=== PATIENT | male | born 1940 | race Caucasian/White ===

== ENCOUNTER 2019-03-10 05:53 | Day surgery (SDC) | payer MEDICARE, OTHER ==
[~2019-03-10] VITALS: Ht 167.6 cm; Wt 95.0 kg
[~2019-03-10 05:53] MED LIST: ALBUTEROL; ALPHAGAN; ASPI-825 PO; COSOPT; FLUT1DIS3 IH; FLUTICASONE PROP; IBUP-2070 PO; LISINOPRIL/HCTZ; SIMV20TA6 PO; SODIUM CHLORIDE 0.9% 1,000 ML IV ONE; SULFACETAMIDE; TRAVATAN; metropolol
[2019-03-10] MEDS ORDERED: EPINEPHrine 1:1,000 [1 MG/ML] AMP IM ONE (05:54)
[2019-03-10] MEDS ORDERED: LIDOCAINE 2% 30 ML JELLY TP ONE (05:54)
[2019-03-10] MEDS ORDERED: BENZOCAINE 20% 50 MCG/SPRAY 57 GM TP ONE (05:54)
[2019-03-10] MEDS ORDERED: LIDOCAINE 4% 50 ML SOLUTION TP ONE (05:54)
[2019-03-10] MEDS ORDERED: ALBUTEROL SULFATE 2.5 MG/0.5 ML NEB SOLUTION NEB ONE (05:54)
[2019-03-10] MEDS ORDERED: SODIUM CHLORIDE 0.9% 1,000 ML IV ONE (06:30)
[2019-03-10] MEDS ORDERED: SIMV-260 PO (07:06)
[2019-03-10] MEDS ORDERED: HYDR-4455 PO (07:06)
[2019-03-10] MEDS ORDERED: OMEG-112 PO (07:06)
[2019-03-10] MEDS ORDERED: DULO30CA2 PO (07:06)
[2019-03-10] MEDS ORDERED: NITR0.4T52 SL (07:06)
[2019-03-10] MEDS ORDERED: CYCL05OE OU (07:06)
[2019-03-10] MEDS ORDERED: FLUT1BLS IH (07:06)
[2019-03-10] MEDS ORDERED: PANT40TA25 PO (07:06)
[2019-03-10] MEDS ORDERED: TELM1TAB34 PO (07:06)
[2019-03-10] MEDS ORDERED: OLOP2.5D OU (07:06)
[2019-03-10] MEDS ORDERED: ISOS30TA6 PO (07:06)
[2019-03-10] MEDS ORDERED: TAMS-1 PO (07:06)
[2019-03-10] MEDS ORDERED: QUET200T5 PO (07:06)
[2019-03-10] MEDS ORDERED: BRINOS OU (07:06)
[2019-03-10] MEDS ORDERED: TRAVZOS OU (07:06)
[2019-03-10] MEDS ORDERED: MIDAZOLAM HCL 2 MG/2 ML VIAL ONE (08:11)
[2019-03-10] MEDS ORDERED: FentaNYL CITRATE-PF 100 MCG/2 ML VIAL ONE (08:12)
[2019-03-10] MEDS ORDERED: MethylPREDNISolone SOD SUCC 125 MG/2 ML VIAL IVP ONE (08:45)
[2019-03-10] MEDS ORDERED: MethylPREDNISolone SOD SUCC 125 MG/2 ML VIAL ONE (08:47)
[2019-03-10] MEDS ORDERED: OXYGEN THERAPY IH SCH (20:00)
== END 2019-03-10 10:10 | disposition home or self-care (01) ==
LOC: SURGERY 05:53
PROVIDERS: ATTEND Internal Medicine Critical Care Medicine
DX: J38.4 Edema of larynx (principal); B37.0 Candidal stomatitis; J45.909 Unspecified asthma, uncomplicated; E78.00 Pure hypercholesterolemia, unspecified; H40.9 Unspecified glaucoma; I25.10 Atherosclerotic heart disease of native coronary artery without angina pectoris; I10 Essential (primary) hypertension; F17.200 Nicotine dependence, unspecified, uncomplicated; Z79.01 Long term (current) use of anticoagulants; Z79.899 Other long term (current) drug therapy; Z98.42 Cataract extraction status, left eye; Z98.41 Cataract extraction status, right eye; Z98.890 Other specified postprocedural states
CPT/HCPCS: 31623; 31624; 71045; 87015; 87070; 87101; 87205; 87206; 87220; 93005; J0171; J2250; J2930; J3010; J7030

== ENCOUNTER 2021-04-04 06:11 | Day surgery (SDC) | payer MEDICARE, OTHER ==
[2021-04-01 06:21] LABS: COVID AG,FIA SOURCE NASOPHARYNGEAL
[~2021-04-04] VITALS: Ht 167.6 cm; Wt 95.5 kg
[~2021-04-04 06:11] MED LIST changes: -ALBUTEROL; -ALPHAGAN; +BRINOS OU; -COSOPT; +CYCL05OE OU; +DULO30CA96 PO; +FLUT1BLS IH; -FLUTICASONE PROP; +HYDR-4455 PO; -IBUP-2070 PO; +ISOS30TA92 PO; -LISINOPRIL/HCTZ; +NITR0.4T52 SL; +OLOP2.5D12 OU; +OMEG-112 PO; +PANT-31 PO; +QUET200T5 PO; +SIMV-260 PO; -SIMV20TA6 PO; -SODIUM CHLORIDE 0.9% 1,000 ML IV ONE; -SULFACETAMIDE; +TAMS-1 PO; +TELM1TAB42 PO; +TRAV2.5D7 OU; -TRAVATAN; -metropolol
[2021-04-04] MEDS ORDERED: LIDOCAINE 4% 50 ML SOLUTION TP ONE (06:12)
[2021-04-04] MEDS ORDERED: LIDOCAINE 2% 30 ML JELLY TP ONE (06:12)
[2021-04-04] MEDS ORDERED: ALBUTEROL SULFATE 2.5 MG/0.5 ML NEB SOLUTION NEB ONE (06:12)
[2021-04-04] MEDS ORDERED: BENZOCAINE 20% 50 MCG/SPRAY 57 GM TP ONE (06:12)
[2021-04-04] MEDS ORDERED: SODIUM CHLORIDE 0.9% 1,000 ML IV ONE (06:30)
[2021-04-04] MEDS ORDERED: SODIUM CHLORIDE 0.9% 1,000 ML ONE (06:42)
[2021-04-04] MEDS ORDERED: MIDAZOLAM HCL 5 MG/ML VIAL ONE (07:10)
[2021-04-04] MEDS ORDERED: FentaNYL CITRATE PF 100 MCG/2 ML VIAL ONE (07:10)
[2021-04-04] MEDS ORDERED: MethylPREDNISolone SOD SUCC 125 MG/2 ML VIAL IVP ONE (08:45)
[2021-04-04] MEDS ORDERED: MethylPREDNISolone SOD SUCC 125 MG/2 ML VIAL ONE (09:38)
[2021-04-04] MEDS ORDERED: OXYGEN THERAPY IH SCH (20:00)
== END 2021-04-04 10:51 | disposition home or self-care (01) ==
LOC: SURGERY 06:11
PROVIDERS: ATTEND Internal Medicine Critical Care Medicine
DX: B37.0 Candidal stomatitis (principal); J38.4 Edema of larynx; Z98.890 Other specified postprocedural states; Z79.82 Long term (current) use of aspirin; Z98.42 Cataract extraction status, left eye; Z98.41 Cataract extraction status, right eye; Z79.899 Other long term (current) drug therapy
CPT/HCPCS: 31623; 31624; 71045; 71250; 87015; 87070; 87101; 87205; 87206; 87220; 87426; 88108; 88184; 88185; 88312; C9803; J2250; J2930; J3010; J7030; J7613; Z7610

== ENCOUNTER 2021-10-17 15:15 | Inpatient (IN) | payer MEDICARE, OTHER ==
[~2021-10-17] VITALS: Ht 167.6 cm; Wt 87.1 kg
[~2021-10-17 15:15] MED LIST changes: +DULO30CA89 PO; -DULO30CA96 PO
[2021-10-17 15:30] VITALS: BP 150/76
[2021-10-17 20:28] VITALS: BP 127/58
[2021-10-17] MEDS: SENNA 187 MG TABLET PO SCH (20:29)
[2021-10-17] MEDS: SODIUM CHLORIDE 1 GM TABLET PO SCH (20:29)
[2021-10-17] MEDS: ETHYL ALCOHOL 62% ANTISEPTIC NASAL INHALANT 0.6 ML AMPUL NASAL SCH (20:29)
[2021-10-17] MEDS: MELATONIN 3 MG TABLET PO PRN (20:29)
[2021-10-17] MEDS: HEPARIN SODIUM,PORCINE 5,000 UNITS/ML VIAL SQ SCH (20:29)
[2021-10-17] MEDS: TAMSULOSIN HCL 0.4 MG CAPSULE PO SCH (20:30)
[2021-10-17] MEDS: QUEtiapine FUMARATE 25 MG TABLET PO SCH (20:30)
[2021-10-17] MEDS: BRINZOLAMIDE 1% 10 ML OPHTHALMIC SUSPENSION OU SCH (20:30)
[2021-10-17] MEDS: SIMVASTATIN 20 MG TABLET PO SCH (20:30)
[2021-10-17] MEDS: TRAVOPROST-Z 0.004% 2.5 ML OPHTHALMIC SOLUTION OU SCH (20:34)
[2021-10-17] MEDS: CycloSPORINE 0.05% 0.4 ML OPHTHALMIC EMULSION OU SCH (20:40)
[2021-10-17] MEDS ORDERED: VALSARTAN 160 MG TABLET PO SCH (21:00)
[2021-10-17 23:28] VITALS: BP 148/76
[2021-10-18 08:02] LABS: BASOPHILS % (AUTO) 0.4 % (0.0-2.0); EOSINOPHILS % (AUTO) 1.6 % (1.0-6.0); HEMATOCRIT 34.9 % (41-53); HEMOGLOBIN 12.1 g/dL (13.5-17.5); LYMPHOCYTES # (AUTO) 1.5 K/uL (1.0-4.8); LYMPHOCYTES % (AUTO) 16.9 % (22.0-44.0); MEAN CORPUSCULAR HEMOGLOBIN 31.1 pg (26.0-34.0); MEAN CORPUSCULAR HGB CONC 34.6 G/dL (31.0-37.0); MEAN CORPUSCULAR VOLUME 90 fL (80-100); MONOCYTES # (AUTO) 0.9 K/uL (0.1-1.0); MONOCYTES % (AUTO) 10.3 % (2.0-9.0); NEUTROPHILS # (AUTO) 6.1 K/uL (1.8-7.7); NEUTROPHILS % (AUTO) 70.8 % (40.0-70.0); PLATELET COUNT (AUTO) 198 K/uL (150-450); RED BLOOD CELL COUNT(AUTO) 3.88 MIL/uL (4.50-5.90)
[2021-10-18 08:17] LABS: ALANINE AMINOTRANSFERASE 35 U/L (12-78); ALBUMIN 2.9 g/dL (3.4-5.0); ALKALINE PHOSPHATASE 89 U/L (46-116); ANION GAP 7 mmol/L (8-16); ASPARTATE AMINOTRANSFERASE 21 U/L (15-37); CALCIUM, TOTAL 8.9 mg/dL (8.8-10.5); CARBON DIOXIDE 28 mmol/L (22-29); CHLORIDE 97 mmol/L (98-107); CREATININE 0.98 mg/dL (0.60-1.30); GLOMERULAR FILTR. RATE CALC > 60 mL/min (>60); GLUCOSE,RANDOM 115 mg/dL (70-110); POTASSIUM 3.5 mmol/L (3.5-5.1); SODIUM SERUM 132 mmol/L (136-145); TOTAL PROTEIN, SERUM 7.5 g/dL (6.4-8.2); UREA NITROGEN, BLOOD 23 mg/dL (7-18)
[2021-10-18] MEDS ORDERED: TELMISARTAN 40 MG TABLET PO SCH (09:00)
[2021-10-18] MEDS: HEPARIN SODIUM,PORCINE 5,000 UNITS/ML VIAL SQ SCH ×3 (09:43→21:11)
[2021-10-18] MEDS: BRINZOLAMIDE 1% 10 ML OPHTHALMIC SUSPENSION OU SCH ×3 (09:44→21:12)
[2021-10-18] MEDS: TRAVOPROST-Z 0.004% 2.5 ML OPHTHALMIC SOLUTION OU SCH ×2 (09:44→21:13)
[2021-10-18] MEDS: SODIUM CHLORIDE 1 GM TABLET PO SCH ×3 (09:44→21:12)
[2021-10-18] MEDS: ETHYL ALCOHOL 62% ANTISEPTIC NASAL INHALANT 0.6 ML AMPUL NASAL SCH ×2 (09:45→21:10)
[2021-10-18] MEDS: AmLODIPine BESYLATE 10 MG TABLET PO SCH (09:45)
[2021-10-18] MEDS: ISOSORBIDE MONONITRATE 30 MG ER TABLET PO SCH (09:45)
[2021-10-18] MEDS: HYDROCHLOROTHIAZIDE 25 MG TABLET PO SCH (09:46)
[2021-10-18] MEDS: CycloSPORINE 0.05% 0.4 ML OPHTHALMIC EMULSION OU SCH ×2 (09:46→21:11)
[2021-10-18 10:00] VITALS: BP 145/74
[2021-10-18] MEDS: ACETAMINOPHEN 325 MG TABLET PO PRN ×2 (10:28→17:49)
[2021-10-18 16:30] VITALS: BP 132/64
[2021-10-18] MEDS ORDERED: *PATIENT'S OWN MED [ENTER DRUG, DOSE, FREQUENCY IN COMMENTS] CLINICAL ONE (17:15)
[2021-10-18 20:30] VITALS: BP 135/61
[2021-10-18] MEDS: SENNA 187 MG TABLET PO SCH (21:11)
[2021-10-18] MEDS: TAMSULOSIN HCL 0.4 MG CAPSULE PO SCH (21:11)
[2021-10-18] MEDS: SIMVASTATIN 20 MG TABLET PO SCH (21:12)
[2021-10-18] MEDS: QUEtiapine FUMARATE 25 MG TABLET PO SCH (21:12)
[2021-10-18] MEDS: OLOPATADINE HCL 0.1% 5 ML OPHTHALMIC SOLUTION OU SCH (21:13)
[2021-10-18 23:21] VITALS: BP 129/57
[2021-10-19] MEDS: ETHYL ALCOHOL 62% ANTISEPTIC NASAL INHALANT 0.6 ML AMPUL NASAL SCH ×2 (08:28→20:09)
[2021-10-19] MEDS: HEPARIN SODIUM,PORCINE 5,000 UNITS/ML VIAL SQ SCH ×3 (08:28→20:06)
[2021-10-19] MEDS: TRAVOPROST-Z 0.004% 2.5 ML OPHTHALMIC SOLUTION OU SCH ×2 (08:28→20:13)
[2021-10-19] MEDS: AmLODIPine BESYLATE 10 MG TABLET PO SCH (08:28)
[2021-10-19] MEDS: OLOPATADINE HCL 0.1% 5 ML OPHTHALMIC SOLUTION OU SCH ×2 (08:28→20:20)
[2021-10-19] MEDS: BRINZOLAMIDE 1% 10 ML OPHTHALMIC SUSPENSION OU SCH ×3 (08:29→19:53)
[2021-10-19] MEDS: ISOSORBIDE MONONITRATE 30 MG ER TABLET PO SCH (08:30)
[2021-10-19] MEDS: CycloSPORINE 0.05% 0.4 ML OPHTHALMIC EMULSION OU SCH ×2 (08:30→20:07)
[2021-10-19] MEDS: SODIUM CHLORIDE 1 GM TABLET PO SCH ×2 (08:30→20:02)
[2021-10-19] MEDS: HYDROCHLOROTHIAZIDE 25 MG TABLET PO SCH (08:31)
[2021-10-19 08:57] VITALS: BP 126/54
[2021-10-19] MEDS: ACETAMINOPHEN 325 MG TABLET PO PRN ×2 (08:57→13:57)
[2021-10-19 15:23] VITALS: BP 124/59
[2021-10-19 20:01] VITALS: BP 134/69
[2021-10-19] MEDS: SENNA 187 MG TABLET PO SCH (20:02)
[2021-10-19] MEDS: MIRTAZAPINE 15 MG TABLET PO SCH (20:02)
[2021-10-19] MEDS: MELATONIN 3 MG TABLET PO PRN (20:03)
[2021-10-19] MEDS: TAMSULOSIN HCL 0.4 MG CAPSULE PO SCH (20:03)
[2021-10-19] MEDS: VALSARTAN 160 MG TABLET PO SCH (20:06)
[2021-10-19] MEDS: SIMVASTATIN 20 MG TABLET PO SCH (20:07)
[2021-10-19 23:53] VITALS: BP 148/76
[2021-10-20 08:09] VITALS: BP 133/63
[2021-10-20 08:15] LABS: ANION GAP 11 mmol/L (8-16); CALCIUM, TOTAL 9.1 mg/dL (8.8-10.5); CARBON DIOXIDE 26 mmol/L (22-29); CHLORIDE 93 mmol/L (98-107); CREATININE 0.97 mg/dL (0.60-1.30); GLOMERULAR FILTR. RATE CALC > 60 mL/min (>60); GLUCOSE,RANDOM 112 mg/dL (70-110); POTASSIUM 3.3 mmol/L (3.5-5.1); SODIUM SERUM 130 mmol/L (136-145); UREA NITROGEN, BLOOD 23 mg/dL (7-18)
[2021-10-20] MEDS: ETHYL ALCOHOL 62% ANTISEPTIC NASAL INHALANT 0.6 ML AMPUL NASAL SCH ×2 (08:22→20:38)
[2021-10-20] MEDS: MULTIVITAMINS WITH MINERALS, THERAPEUTIC TABLET PO SCH (08:23)
[2021-10-20] MEDS: TRAVOPROST-Z 0.004% 2.5 ML OPHTHALMIC SOLUTION OU SCH ×2 (08:24→20:39)
[2021-10-20] MEDS: OMEPRAZOLE 20 MG CAPSULE PO SCH (08:24)
[2021-10-20] MEDS: ISOSORBIDE MONONITRATE 30 MG ER TABLET PO SCH (08:24)
[2021-10-20] MEDS: OLOPATADINE HCL 0.1% 5 ML OPHTHALMIC SOLUTION OU SCH ×2 (08:24→20:44)
[2021-10-20] MEDS: BRINZOLAMIDE 1% 10 ML OPHTHALMIC SUSPENSION OU SCH ×3 (08:24→20:34)
[2021-10-20] MEDS: AmLODIPine BESYLATE 10 MG TABLET PO SCH (08:24)
[2021-10-20] MEDS: SODIUM CHLORIDE 1 GM TABLET PO SCH ×2 (08:24→20:38)
[2021-10-20] MEDS: HEPARIN SODIUM,PORCINE 5,000 UNITS/ML VIAL SQ SCH ×3 (08:25→20:47)
[2021-10-20] MEDS: CycloSPORINE 0.05% 0.4 ML OPHTHALMIC EMULSION OU SCH ×3 (08:26→20:50)
[2021-10-20] MEDS ORDERED: POTASSIUM CHLORIDE 10 MEQ ER TABLET PO ONE (10:00)
[2021-10-20 12:00] VITALS: BP 131/64
[2021-10-20] MEDS ORDERED: POTASSIUM CHLORIDE 20 MEQ ER TABLET PO PRN (12:45)
[2021-10-20] MEDS ORDERED: POTASSIUM CHL 10 MEQ/WATER 50 ML IV PRN (12:45)
[2021-10-20 16:04] VITALS: BP 112/60
[2021-10-20] MEDS: ACETAMINOPHEN 325 MG TABLET PO PRN (18:24)
[2021-10-20] MEDS: SIMVASTATIN 20 MG TABLET PO SCH (20:37)
[2021-10-20] MEDS: SENNA 187 MG TABLET PO SCH (20:37)
[2021-10-20] MEDS: VALSARTAN 160 MG TABLET PO SCH (20:38)
[2021-10-20] MEDS: MIRTAZAPINE 15 MG TABLET PO SCH (20:38)
[2021-10-20] MEDS: TAMSULOSIN HCL 0.4 MG CAPSULE PO SCH (20:38)
[2021-10-20 21:00] VITALS: BP 146/68
[2021-10-21 08:01] VITALS: BP 147/69
[2021-10-21] MEDS: BRINZOLAMIDE 1% 10 ML OPHTHALMIC SUSPENSION OU SCH ×3 (08:12→20:17)
[2021-10-21] MEDS: ETHYL ALCOHOL 62% ANTISEPTIC NASAL INHALANT 0.6 ML AMPUL NASAL SCH ×2 (08:12→20:06)
[2021-10-21] MEDS: OLOPATADINE HCL 0.1% 5 ML OPHTHALMIC SOLUTION OU SCH ×2 (08:12→20:06)
[2021-10-21] MEDS: TRAVOPROST-Z 0.004% 2.5 ML OPHTHALMIC SOLUTION OU SCH ×2 (08:13→20:43)
[2021-10-21] MEDS: SODIUM CHLORIDE 1 GM TABLET PO SCH ×2 (08:14→20:32)
[2021-10-21] MEDS: OMEPRAZOLE 20 MG CAPSULE PO SCH (08:14)
[2021-10-21] MEDS: ISOSORBIDE MONONITRATE 30 MG ER TABLET PO SCH (08:14)
[2021-10-21] MEDS: CycloSPORINE 0.05% 0.4 ML OPHTHALMIC EMULSION OU SCH ×2 (08:14→20:32)
[2021-10-21] MEDS: AmLODIPine BESYLATE 10 MG TABLET PO SCH (08:15)
[2021-10-21] MEDS: MULTIVITAMINS WITH MINERALS, THERAPEUTIC TABLET PO SCH (08:15)
[2021-10-21] MEDS: HEPARIN SODIUM,PORCINE 5,000 UNITS/ML VIAL SQ SCH ×3 (08:17→20:31)
[2021-10-21] MEDS ORDERED: POTASSIUM CHLORIDE 20 MEQ ER TABLET PO ONE (10:00)
[2021-10-21 10:53] LABS: ANION GAP 12 mmol/L (8-16); CALCIUM, TOTAL 9.1 mg/dL (8.8-10.5); CARBON DIOXIDE 22 mmol/L (22-29); CHLORIDE 97 mmol/L (98-107); GLUCOSE,RANDOM 106 mg/dL (70-110); POTASSIUM 4.2 mmol/L (3.5-5.1); SODIUM SERUM 131 mmol/L (136-145); UREA NITROGEN, BLOOD 23 mg/dL (7-18)
[2021-10-21 10:55] LABS: GLOMERULAR FILTR. RATE CALC > 60 mL/min (>60)
[2021-10-21 16:00] VITALS: BP 128/57
[2021-10-21 20:30] VITALS: BP 145/73
[2021-10-21] MEDS: VALSARTAN 160 MG TABLET PO SCH (20:31)
[2021-10-21] MEDS: TAMSULOSIN HCL 0.4 MG CAPSULE PO SCH (20:31)
[2021-10-21] MEDS: SENNA 187 MG TABLET PO SCH (20:31)
[2021-10-21] MEDS: MIRTAZAPINE 15 MG TABLET PO SCH (20:31)
[2021-10-21] MEDS: SIMVASTATIN 20 MG TABLET PO SCH (20:31)
[2021-10-22] VITALS: BP 162/76
[2021-10-22 09:00] VITALS: BP 148/73
[2021-10-22] MEDS: ETHYL ALCOHOL 62% ANTISEPTIC NASAL INHALANT 0.6 ML AMPUL NASAL SCH ×2 (09:38→21:21)
[2021-10-22] MEDS: BRINZOLAMIDE 1% 10 ML OPHTHALMIC SUSPENSION OU SCH ×3 (09:39→21:22)
[2021-10-22] MEDS: SODIUM CHLORIDE 1 GM TABLET PO SCH ×2 (09:39→21:22)
[2021-10-22] MEDS: MULTIVITAMINS WITH MINERALS, THERAPEUTIC TABLET PO SCH (09:39)
[2021-10-22] MEDS: TRAVOPROST-Z 0.004% 2.5 ML OPHTHALMIC SOLUTION OU SCH ×2 (09:39→21:22)
[2021-10-22] MEDS: OMEPRAZOLE 20 MG CAPSULE PO SCH (09:39)
[2021-10-22] MEDS: ISOSORBIDE MONONITRATE 30 MG ER TABLET PO SCH (09:39)
[2021-10-22] MEDS: OLOPATADINE HCL 0.1% 5 ML OPHTHALMIC SOLUTION OU SCH ×2 (09:39→21:21)
[2021-10-22] MEDS: HEPARIN SODIUM,PORCINE 5,000 UNITS/ML VIAL SQ SCH ×3 (09:40→21:35)
[2021-10-22] MEDS: CycloSPORINE 0.05% 0.4 ML OPHTHALMIC EMULSION OU SCH ×2 (09:40→21:33)
[2021-10-22] MEDS: AmLODIPine BESYLATE 10 MG TABLET PO SCH (09:40)
[2021-10-22 16:29] VITALS: BP 128/63
[2021-10-22] MEDS: MIRTAZAPINE 15 MG TABLET PO SCH (21:22)
[2021-10-22] MEDS: SENNA 187 MG TABLET PO SCH (21:22)
[2021-10-22] MEDS: TAMSULOSIN HCL 0.4 MG CAPSULE PO SCH (21:22)
[2021-10-22] MEDS: VALSARTAN 160 MG TABLET PO SCH (21:22)
[2021-10-22] MEDS: ACETAMINOPHEN 325 MG TABLET PO PRN (21:23)
[2021-10-22] MEDS: SIMVASTATIN 20 MG TABLET PO SCH (21:24)
[2021-10-22 23:46] VITALS: BP 148/78
[2021-10-23] MEDS: TRAVOPROST-Z 0.004% 2.5 ML OPHTHALMIC SOLUTION OU SCH ×2 (08:45→21:33)
[2021-10-23] MEDS: CycloSPORINE 0.05% 0.4 ML OPHTHALMIC EMULSION OU SCH ×2 (08:45→21:33)
[2021-10-23] MEDS: OLOPATADINE HCL 0.1% 5 ML OPHTHALMIC SOLUTION OU SCH ×2 (08:45→21:33)
[2021-10-23] MEDS: BRINZOLAMIDE 1% 10 ML OPHTHALMIC SUSPENSION OU SCH ×3 (08:45→21:33)
[2021-10-23] MEDS: DOCUSATE SODIUM 250 MG CAPSULE PO SCH ×2 (08:46→21:31)
[2021-10-23] MEDS: HEPARIN SODIUM,PORCINE 5,000 UNITS/ML VIAL SQ SCH ×3 (08:46→21:30)
[2021-10-23] MEDS: ETHYL ALCOHOL 62% ANTISEPTIC NASAL INHALANT 0.6 ML AMPUL NASAL SCH ×2 (08:46→21:31)
[2021-10-23] MEDS: SODIUM CHLORIDE 1 GM TABLET PO SCH ×2 (08:46→21:31)
[2021-10-23] MEDS: MULTIVITAMINS WITH MINERALS, THERAPEUTIC TABLET PO SCH (08:46)
[2021-10-23] MEDS: ISOSORBIDE MONONITRATE 30 MG ER TABLET PO SCH (08:46)
[2021-10-23] MEDS: OMEPRAZOLE 20 MG CAPSULE PO SCH (08:46)
[2021-10-23] MEDS: AmLODIPine BESYLATE 10 MG TABLET PO SCH (08:46)
[2021-10-23 09:00] VITALS: BP 131/73
[2021-10-23] MEDS ORDERED: POTASSIUM CHLORIDE 20 MEQ ER TABLET PO SCH (09:00)
[2021-10-23] MEDS ORDERED: LACTULOSE 20 GM/30 ML SOLUTION UDCUP PO PRN (13:00)
[2021-10-23 16:05] VITALS: BP 113/71
[2021-10-23] MEDS: TAMSULOSIN HCL 0.4 MG CAPSULE PO SCH (21:31)
[2021-10-23] MEDS: VALSARTAN 160 MG TABLET PO SCH (21:31)
[2021-10-23] MEDS: SENNA 187 MG TABLET PO SCH (21:32)
[2021-10-23] MEDS: SIMVASTATIN 20 MG TABLET PO SCH (21:32)
[2021-10-23] MEDS: MIRTAZAPINE 15 MG TABLET PO SCH (21:32)
[2021-10-23 23:26] VITALS: BP 128/76
[2021-10-24 08:02] VITALS: BP 148/70
[2021-10-24 08:06] LABS: ANION GAP 9 mmol/L (8-16); CARBON DIOXIDE 25 mmol/L (22-29); CHLORIDE 93 mmol/L (98-107); CREATININE 0.84 mg/dL (0.60-1.30); GLUCOSE,RANDOM 114 mg/dL (70-110); SODIUM SERUM 127 mmol/L (136-145); UREA NITROGEN, BLOOD 23 mg/dL (7-18)
[2021-10-24 08:12] LABS: GLOMERULAR FILTR. RATE CALC > 60 mL/min (>60)
[2021-10-24] MEDS: MULTIVITAMINS WITH MINERALS, THERAPEUTIC TABLET PO SCH (08:15)
[2021-10-24] MEDS: HEPARIN SODIUM,PORCINE 5,000 UNITS/ML VIAL SQ SCH ×3 (08:15→20:29)
[2021-10-24] MEDS: BRINZOLAMIDE 1% 10 ML OPHTHALMIC SUSPENSION OU SCH ×3 (08:15→20:35)
[2021-10-24] MEDS: AmLODIPine BESYLATE 10 MG TABLET PO SCH (08:15)
[2021-10-24] MEDS: DOCUSATE SODIUM 250 MG CAPSULE PO SCH ×2 (08:15→20:30)
[2021-10-24] MEDS: ETHYL ALCOHOL 62% ANTISEPTIC NASAL INHALANT 0.6 ML AMPUL NASAL SCH ×2 (08:15→20:29)
[2021-10-24] MEDS: CycloSPORINE 0.05% 0.4 ML OPHTHALMIC EMULSION OU SCH ×2 (08:16→20:46)
[2021-10-24] MEDS: ISOSORBIDE MONONITRATE 30 MG ER TABLET PO SCH (08:16)
[2021-10-24] MEDS: SODIUM CHLORIDE 1 GM TABLET PO SCH ×2 (08:16→20:29)
[2021-10-24] MEDS: OLOPATADINE HCL 0.1% 5 ML OPHTHALMIC SOLUTION OU SCH ×2 (08:16→20:29)
[2021-10-24] MEDS: TRAVOPROST-Z 0.004% 2.5 ML OPHTHALMIC SOLUTION OU SCH ×2 (08:16→20:56)
[2021-10-24] MEDS: OMEPRAZOLE 20 MG CAPSULE PO SCH (08:16)
[2021-10-24 16:10] VITALS: BP 117/53
[2021-10-24] MEDS: MIRTAZAPINE 15 MG TABLET PO SCH (20:29)
[2021-10-24] MEDS: TAMSULOSIN HCL 0.4 MG CAPSULE PO SCH (20:29)
[2021-10-24] MEDS: SENNA 187 MG TABLET PO SCH (20:29)
[2021-10-24] MEDS: SIMVASTATIN 20 MG TABLET PO SCH (20:30)
[2021-10-24 21:05] VITALS: BP 126/64
[2021-10-24] MEDS: VALSARTAN 160 MG TABLET PO SCH (21:07)
[2021-10-25 00:29] VITALS: BP 138/64
[2021-10-25] MEDS: BRINZOLAMIDE 1% 10 ML OPHTHALMIC SUSPENSION OU SCH ×3 (08:10→20:28)
[2021-10-25] MEDS: ETHYL ALCOHOL 62% ANTISEPTIC NASAL INHALANT 0.6 ML AMPUL NASAL SCH ×2 (08:10→20:23)
[2021-10-25] MEDS: OMEPRAZOLE 20 MG CAPSULE PO SCH (08:10)
[2021-10-25] MEDS: OLOPATADINE HCL 0.1% 5 ML OPHTHALMIC SOLUTION OU SCH ×2 (08:10→20:23)
[2021-10-25] MEDS: DOCUSATE SODIUM 250 MG CAPSULE PO SCH ×3 (08:11→21:00)
[2021-10-25] MEDS: TRAVOPROST-Z 0.004% 2.5 ML OPHTHALMIC SOLUTION OU SCH ×2 (08:11→20:39)
[2021-10-25] MEDS: MULTIVITAMINS WITH MINERALS, THERAPEUTIC TABLET PO SCH (08:11)
[2021-10-25] MEDS: SODIUM CHLORIDE 1 GM TABLET PO SCH ×3 (08:11→20:23)
[2021-10-25] MEDS: AmLODIPine BESYLATE 10 MG TABLET PO SCH (08:11)
[2021-10-25] MEDS: ISOSORBIDE MONONITRATE 30 MG ER TABLET PO SCH (08:11)
[2021-10-25] MEDS: CycloSPORINE 0.05% 0.4 ML OPHTHALMIC EMULSION OU SCH ×2 (08:11→21:00)
[2021-10-25] MEDS: HEPARIN SODIUM,PORCINE 5,000 UNITS/ML VIAL SQ SCH ×3 (08:12→20:22)
[2021-10-25 09:01] VITALS: BP 133/72
[2021-10-25] MEDS: ACETAMINOPHEN 325 MG TABLET PO PRN (11:57)
[2021-10-25 15:20] VITALS: BP 130/63
[2021-10-25 20:20] VITALS: BP 138/66
[2021-10-25] MEDS: SENNA 187 MG TABLET PO SCH (20:23)
[2021-10-25] MEDS: MIRTAZAPINE 15 MG TABLET PO SCH (20:23)
[2021-10-25] MEDS: VALSARTAN 160 MG TABLET PO SCH (20:23)
[2021-10-25] MEDS: SIMVASTATIN 20 MG TABLET PO SCH (20:23)
[2021-10-25] MEDS: TAMSULOSIN HCL 0.4 MG CAPSULE PO SCH (20:23)
[2021-10-25 23:42] VITALS: BP 131/63
[2021-10-26] MEDS: ACETAMINOPHEN 325 MG TABLET PO PRN (04:04)
[2021-10-26] MEDS: ETHYL ALCOHOL 62% ANTISEPTIC NASAL INHALANT 0.6 ML AMPUL NASAL SCH ×2 (07:40→19:56)
[2021-10-26] MEDS: OMEPRAZOLE 20 MG CAPSULE PO SCH (07:41)
[2021-10-26] MEDS: CycloSPORINE 0.05% 0.4 ML OPHTHALMIC EMULSION OU SCH ×2 (07:41→19:56)
[2021-10-26] MEDS: OLOPATADINE HCL 0.1% 5 ML OPHTHALMIC SOLUTION OU SCH ×2 (07:41→19:56)
[2021-10-26] MEDS: ISOSORBIDE MONONITRATE 30 MG ER TABLET PO SCH (07:41)
[2021-10-26] MEDS: BRINZOLAMIDE 1% 10 ML OPHTHALMIC SUSPENSION OU SCH ×3 (07:41→19:56)
[2021-10-26] MEDS: TRAVOPROST-Z 0.004% 2.5 ML OPHTHALMIC SOLUTION OU SCH ×2 (07:42→19:57)
[2021-10-26] MEDS: DOCUSATE SODIUM 250 MG CAPSULE PO SCH ×2 (07:42→19:57)
[2021-10-26] MEDS: AmLODIPine BESYLATE 10 MG TABLET PO SCH (07:43)
[2021-10-26] MEDS: MULTIVITAMINS WITH MINERALS, THERAPEUTIC TABLET PO SCH (07:43)
[2021-10-26] MEDS: SODIUM CHLORIDE 1 GM TABLET PO SCH ×3 (07:43→19:57)
[2021-10-26] MEDS: HEPARIN SODIUM,PORCINE 5,000 UNITS/ML VIAL SQ SCH ×3 (07:43→20:00)
[2021-10-26 08:30] VITALS: BP 114/60
[2021-10-26 09:15] VITALS: BP 113/51
[2021-10-26 09:31] LABS: GLUCOMETER DEV NAME(LOC) 2WR.1C; GLUCOSE,POINT OF CARE 126 MG/DL (70-110)
[2021-10-26 09:32] LABS: ANION GAP 6 mmol/L (8-16); CALCIUM, TOTAL 9.5 mg/dL (8.8-10.5); CARBON DIOXIDE 26 mmol/L (22-29); CHLORIDE 96 mmol/L (98-107); CREATININE 1.03 mg/dL (0.60-1.30); GLUCOSE,RANDOM 118 mg/dL (70-110); POTASSIUM 4.3 mmol/L (3.5-5.1); SODIUM SERUM 128 mmol/L (136-145); UREA NITROGEN, BLOOD 30 mg/dL (7-18)
[2021-10-26 09:34] LABS: GLOMERULAR FILTR. RATE CALC > 60 mL/min (>60)
[2021-10-26 17:10] VITALS: BP 124/64
[2021-10-26] MEDS: VALSARTAN 160 MG TABLET PO SCH (19:57)
[2021-10-26] MEDS: MIRTAZAPINE 15 MG TABLET PO SCH (19:57)
[2021-10-26] MEDS: TAMSULOSIN HCL 0.4 MG CAPSULE PO SCH (19:57)
[2021-10-26] MEDS: SENNA 187 MG TABLET PO SCH (19:58)
[2021-10-26] MEDS: SIMVASTATIN 20 MG TABLET PO SCH (19:58)
[2021-10-26] MEDS: ValACYclovir HCL 500 MG TABLET PO SCH (19:58)
[2021-10-27] VITALS: BP 136/72
[2021-10-27] MEDS: OLOPATADINE HCL 0.1% 5 ML OPHTHALMIC SOLUTION OU SCH ×2 (08:48→21:53)
[2021-10-27] MEDS: BRINZOLAMIDE 1% 10 ML OPHTHALMIC SUSPENSION OU SCH ×3 (08:48→20:32)
[2021-10-27] MEDS: ETHYL ALCOHOL 62% ANTISEPTIC NASAL INHALANT 0.6 ML AMPUL NASAL SCH ×2 (08:48→20:34)
[2021-10-27] MEDS: CycloSPORINE 0.05% 0.4 ML OPHTHALMIC EMULSION OU SCH ×2 (08:48→20:36)
[2021-10-27] MEDS: TRAVOPROST-Z 0.004% 2.5 ML OPHTHALMIC SOLUTION OU SCH ×2 (08:48→22:16)
[2021-10-27] MEDS: OMEPRAZOLE 20 MG CAPSULE PO SCH (08:49)
[2021-10-27] MEDS: SODIUM CHLORIDE 1 GM TABLET PO SCH ×3 (08:49→20:32)
[2021-10-27] MEDS: ISOSORBIDE MONONITRATE 30 MG ER TABLET PO SCH (08:49)
[2021-10-27] MEDS: DOCUSATE SODIUM 250 MG CAPSULE PO SCH ×2 (08:49→20:33)
[2021-10-27] MEDS: ValACYclovir HCL 500 MG TABLET PO SCH ×2 (08:49→20:32)
[2021-10-27] MEDS: HEPARIN SODIUM,PORCINE 5,000 UNITS/ML VIAL SQ SCH (08:50)
[2021-10-27] MEDS: PredniSONE 20 MG TABLET PO SCH (08:50)
[2021-10-27] MEDS: AmLODIPine BESYLATE 10 MG TABLET PO SCH (08:50)
[2021-10-27] MEDS: MULTIVITAMINS WITH MINERALS, THERAPEUTIC TABLET PO SCH (08:50)
[2021-10-27 09:02] VITALS: BP 125/59
[2021-10-27] MEDS ORDERED: LORazepam 1 MG TABLET PO PRN (10:15)
[2021-10-27] MEDS ORDERED: LORA-1000 PO (10:54)
[2021-10-27] MEDS ORDERED: VALS160T2 PO (10:54)
[2021-10-27] MEDS ORDERED: ISOS30TA92 PO (10:54)
[2021-10-27] MEDS ORDERED: MIRT-89 PO (10:54)
[2021-10-27] MEDS ORDERED: SIMV-43 PO (10:54)
[2021-10-27] MEDS ORDERED: AMLO-258 PO (10:54)
[2021-10-27] MEDS ORDERED: CYCL05OE OU (10:54)
[2021-10-27] MEDS ORDERED: TRAV2.5D7 OU (10:54)
[2021-10-27] MEDS ORDERED: MULT-1239 PO (10:54)
[2021-10-27] MEDS ORDERED: TAMS-13 PO (10:54)
[2021-10-27] MEDS ORDERED: ACET325T51 PO (10:54)
[2021-10-27] MEDS ORDERED: NACL1 PO (10:54)
[2021-10-27] MEDS ORDERED: SENN-187 PO (10:54)
[2021-10-27] MEDS ORDERED: OMEP20 PO (10:54)
[2021-10-27] MEDS ORDERED: DOCU-350 PO (10:54)
[2021-10-27] MEDS ORDERED: BRINOS OU (10:54)
[2021-10-27 11:17] LABS: COVID AG,FIA SOURCE NASAL SWAB
[2021-10-27 15:29] VITALS: BP 108/60
[2021-10-27 20:32] VITALS: BP 116/67
[2021-10-27] MEDS: SIMVASTATIN 20 MG TABLET PO SCH (20:32)
[2021-10-27] MEDS: VALSARTAN 160 MG TABLET PO SCH (20:32)
[2021-10-27] MEDS: SENNA 187 MG TABLET PO SCH (20:33)
[2021-10-27] MEDS: TAMSULOSIN HCL 0.4 MG CAPSULE PO SCH (20:33)
[2021-10-27] MEDS: MIRTAZAPINE 15 MG TABLET PO SCH (20:34)
[2021-10-27] MEDS: 0.9% SODIUM CHLORIDE 10 ML SYRINGE IVP SCH (23:04)
[2021-10-28 01:55] VITALS: BP 131/65
[2021-10-28] MEDS: 0.9% SODIUM CHLORIDE 10 ML SYRINGE IVP SCH ×3 (08:28→23:43)
[2021-10-28] MEDS: AmLODIPine BESYLATE 10 MG TABLET PO SCH (09:39)
[2021-10-28] MEDS: ETHYL ALCOHOL 62% ANTISEPTIC NASAL INHALANT 0.6 ML AMPUL NASAL SCH ×2 (09:39→20:10)
[2021-10-28] MEDS: ISOSORBIDE MONONITRATE 30 MG ER TABLET PO SCH (09:40)
[2021-10-28] MEDS: OMEPRAZOLE 20 MG CAPSULE PO SCH (09:40)
[2021-10-28] MEDS: SODIUM CHLORIDE 1 GM TABLET PO SCH ×3 (09:40→20:10)
[2021-10-28] MEDS: PredniSONE 20 MG TABLET PO SCH (09:40)
[2021-10-28] MEDS: MULTIVITAMINS WITH MINERALS, THERAPEUTIC TABLET PO SCH (09:40)
[2021-10-28] MEDS: OLOPATADINE HCL 0.1% 5 ML OPHTHALMIC SOLUTION OU SCH ×2 (09:40→20:22)
[2021-10-28] MEDS: DOCUSATE SODIUM 250 MG CAPSULE PO SCH ×2 (09:40→20:11)
[2021-10-28] MEDS: BRINZOLAMIDE 1% 10 ML OPHTHALMIC SUSPENSION OU SCH ×3 (09:41→20:22)
[2021-10-28] MEDS: TRAVOPROST-Z 0.004% 2.5 ML OPHTHALMIC SOLUTION OU SCH ×2 (09:41→20:21)
[2021-10-28] MEDS: CycloSPORINE 0.05% 0.4 ML OPHTHALMIC EMULSION OU SCH ×2 (09:41→20:12)
[2021-10-28] MEDS: ValACYclovir HCL 500 MG TABLET PO SCH ×2 (09:52→20:10)
[2021-10-28 10:43] VITALS: BP 118/61
[2021-10-28 16:30] VITALS: BP 122/65
[2021-10-28] MEDS: SENNA 187 MG TABLET PO SCH (20:11)
[2021-10-28] MEDS: SIMVASTATIN 20 MG TABLET PO SCH (20:11)
[2021-10-28] MEDS: MIRTAZAPINE 15 MG TABLET PO SCH (20:11)
[2021-10-28] MEDS: TAMSULOSIN HCL 0.4 MG CAPSULE PO SCH (20:11)
[2021-10-28] MEDS: VALSARTAN 160 MG TABLET PO SCH (20:11)
[2021-10-29 00:30] VITALS: BP 149/72
[2021-10-29] MEDS: 0.9% SODIUM CHLORIDE 10 ML SYRINGE IVP SCH ×3 (08:52→23:48)
[2021-10-29] MEDS: OLOPATADINE HCL 0.1% 5 ML OPHTHALMIC SOLUTION OU SCH ×2 (08:53→19:43)
[2021-10-29] MEDS: BRINZOLAMIDE 1% 10 ML OPHTHALMIC SUSPENSION OU SCH ×3 (08:53→19:51)
[2021-10-29] MEDS: CycloSPORINE 0.05% 0.4 ML OPHTHALMIC EMULSION OU SCH ×2 (08:53→20:53)
[2021-10-29] MEDS: TRAVOPROST-Z 0.004% 2.5 ML OPHTHALMIC SOLUTION OU SCH ×2 (08:53→20:38)
[2021-10-29] MEDS: ETHYL ALCOHOL 62% ANTISEPTIC NASAL INHALANT 0.6 ML AMPUL NASAL SCH ×2 (09:00→19:43)
[2021-10-29 09:01] VITALS: BP 139/78
[2021-10-29] MEDS: PredniSONE 20 MG TABLET PO SCH (09:01)
[2021-10-29] MEDS: AmLODIPine BESYLATE 10 MG TABLET PO SCH (09:01)
[2021-10-29] MEDS: MULTIVITAMINS WITH MINERALS, THERAPEUTIC TABLET PO SCH (09:01)
[2021-10-29] MEDS: DOCUSATE SODIUM 250 MG CAPSULE PO SCH ×2 (09:01→20:38)
[2021-10-29] MEDS: ValACYclovir HCL 500 MG TABLET PO SCH ×2 (09:02→20:38)
[2021-10-29] MEDS: OMEPRAZOLE 20 MG CAPSULE PO SCH (09:02)
[2021-10-29] MEDS: SODIUM CHLORIDE 1 GM TABLET PO SCH ×3 (09:02→20:39)
[2021-10-29] MEDS: ISOSORBIDE MONONITRATE 30 MG ER TABLET PO SCH (09:02)
[2021-10-29 10:17] LABS: CALCIUM, TOTAL 9.6 mg/dL (8.8-10.5); CREATININE 1.18 mg/dL (0.60-1.30); POTASSIUM 3.8 mmol/L (3.5-5.1)
[2021-10-29 17:43] VITALS: BP 145/63
[2021-10-29 20:35] VITALS: BP 122/67
[2021-10-29] MEDS: MIRTAZAPINE 15 MG TABLET PO SCH (20:38)
[2021-10-29] MEDS: SENNA 187 MG TABLET PO SCH (20:39)
[2021-10-29] MEDS: VALSARTAN 160 MG TABLET PO SCH (20:39)
[2021-10-29] MEDS: SIMVASTATIN 20 MG TABLET PO SCH (20:39)
[2021-10-29] MEDS: TAMSULOSIN HCL 0.4 MG CAPSULE PO SCH (20:39)
[2021-10-30 02:18] VITALS: BP 107/60
[2021-10-30 08:24] VITALS: BP 129/63
[2021-10-30] MEDS: ValACYclovir HCL 500 MG TABLET PO SCH ×2 (09:08→20:03)
[2021-10-30] MEDS: SODIUM CHLORIDE 1 GM TABLET PO SCH (09:12)
[2021-10-30] MEDS: ISOSORBIDE MONONITRATE 30 MG ER TABLET PO SCH (09:12)
[2021-10-30] MEDS: CycloSPORINE 0.05% 0.4 ML OPHTHALMIC EMULSION OU SCH ×2 (09:13→20:03)
[2021-10-30] MEDS: PredniSONE 20 MG TABLET PO SCH (09:13)
[2021-10-30] MEDS: BRINZOLAMIDE 1% 10 ML OPHTHALMIC SUSPENSION OU SCH ×3 (09:13→19:30)
[2021-10-30] MEDS: MULTIVITAMINS WITH MINERALS, THERAPEUTIC TABLET PO SCH (09:13)
[2021-10-30] MEDS: OLOPATADINE HCL 0.1% 5 ML OPHTHALMIC SOLUTION OU SCH ×2 (09:13→19:45)
[2021-10-30] MEDS: AmLODIPine BESYLATE 10 MG TABLET PO SCH (09:13)
[2021-10-30] MEDS: TRAVOPROST-Z 0.004% 2.5 ML OPHTHALMIC SOLUTION OU SCH ×2 (09:13→20:40)
[2021-10-30] MEDS: DOCUSATE SODIUM 250 MG CAPSULE PO SCH ×2 (09:13→20:03)
[2021-10-30] MEDS: OMEPRAZOLE 20 MG CAPSULE PO SCH (09:13)
[2021-10-30] MEDS: ETHYL ALCOHOL 62% ANTISEPTIC NASAL INHALANT 0.6 ML AMPUL NASAL SCH ×2 (09:14→20:03)
[2021-10-30 10:50] LABS: CALCIUM, TOTAL 9.1 mg/dL (8.8-10.5); CREATININE 1.17 mg/dL (0.60-1.30); POTASSIUM 3.5 mmol/L (3.5-5.1)
[2021-10-30 15:57] VITALS: BP 124/59
[2021-10-30 20:02] VITALS: BP 133/67
[2021-10-30] MEDS: VALSARTAN 160 MG TABLET PO SCH (20:03)
[2021-10-30] MEDS: SENNA 187 MG TABLET PO SCH (20:03)
[2021-10-30] MEDS: MIRTAZAPINE 15 MG TABLET PO SCH (20:03)
[2021-10-30] MEDS: TAMSULOSIN HCL 0.4 MG CAPSULE PO SCH (20:04)
[2021-10-30] MEDS: SIMVASTATIN 20 MG TABLET PO SCH (20:04)
[2021-10-31 01:34] VITALS: BP 147/80
[2021-10-31] MEDS ORDERED: PRED20 PO (08:03)
[2021-10-31] MEDS ORDERED: VALA500T42 PO (08:03)
[2021-10-31 08:15] VITALS: BP 139/69
[2021-10-31] MEDS: DOCUSATE SODIUM 250 MG CAPSULE PO SCH ×2 (08:34→20:01)
[2021-10-31] MEDS: MULTIVITAMINS WITH MINERALS, THERAPEUTIC TABLET PO SCH (08:35)
[2021-10-31] MEDS: PredniSONE 20 MG TABLET PO SCH (08:36)
[2021-10-31] MEDS: SODIUM CHLORIDE 1 GM TABLET PO SCH (08:36)
[2021-10-31] MEDS: ValACYclovir HCL 500 MG TABLET PO SCH ×2 (08:37→20:01)
[2021-10-31] MEDS: ISOSORBIDE MONONITRATE 30 MG ER TABLET PO SCH (08:37)
[2021-10-31] MEDS: OMEPRAZOLE 20 MG CAPSULE PO SCH (08:37)
[2021-10-31] MEDS: ETHYL ALCOHOL 62% ANTISEPTIC NASAL INHALANT 0.6 ML AMPUL NASAL SCH ×2 (08:38→19:56)
[2021-10-31] MEDS: CycloSPORINE 0.05% 0.4 ML OPHTHALMIC EMULSION OU SCH ×2 (08:39→20:11)
[2021-10-31] MEDS: TRAVOPROST-Z 0.004% 2.5 ML OPHTHALMIC SOLUTION OU SCH ×2 (08:39→20:03)
[2021-10-31] MEDS: OLOPATADINE HCL 0.1% 5 ML OPHTHALMIC SOLUTION OU SCH ×2 (08:39→19:53)
[2021-10-31] MEDS: BRINZOLAMIDE 1% 10 ML OPHTHALMIC SUSPENSION OU SCH ×3 (08:39→19:58)
[2021-10-31] MEDS: AmLODIPine BESYLATE 10 MG TABLET PO SCH (08:45)
[2021-10-31] MEDS ORDERED: SODIUM CHLORIDE 0.9% 1,000 ML IV ONE ×2 (09:00→20:30)
[2021-10-31 09:49] LABS: ANION GAP 10 mmol/L (8-16); CALCIUM, TOTAL 9.5 mg/dL (8.8-10.5); CARBON DIOXIDE 28 mmol/L (22-29); CHLORIDE 102 mmol/L (98-107); CREATININE 1.11 mg/dL (0.60-1.30); GLOMERULAR FILTR. RATE CALC > 60 mL/min (>60); GLUCOSE,RANDOM 120 mg/dL (70-110); SODIUM SERUM 140 mmol/L (136-145); UREA NITROGEN, BLOOD 45 mg/dL (7-18)
[2021-10-31 16:02] VITALS: BP 123/61
[2021-10-31 19:58] VITALS: BP 130/63
[2021-10-31] MEDS: TAMSULOSIN HCL 0.4 MG CAPSULE PO SCH (20:01)
[2021-10-31] MEDS: SIMVASTATIN 20 MG TABLET PO SCH (20:01)
[2021-10-31] MEDS: MIRTAZAPINE 15 MG TABLET PO SCH (20:01)
[2021-10-31] MEDS: SENNA 187 MG TABLET PO SCH (20:01)
[2021-10-31] MEDS: VALSARTAN 160 MG TABLET PO SCH (20:01)
[2021-10-31 23:36] VITALS: BP 125/69
[2021-11-01 06:55] LABS: ANION GAP 7 mmol/L (8-16); CALCIUM, TOTAL 8.7 mg/dL (8.8-10.5); CARBON DIOXIDE 27 mmol/L (22-29); CHLORIDE 105 mmol/L (98-107); CREATININE 0.97 mg/dL (0.60-1.30); GLUCOSE,RANDOM 100 mg/dL (70-110); POTASSIUM 3.6 mmol/L (3.5-5.1); SODIUM SERUM 139 mmol/L (136-145); UREA NITROGEN, BLOOD 38 mg/dL (7-18)
[2021-11-01 06:58] LABS: GLOMERULAR FILTR. RATE CALC > 60 mL/min (>60)
[2021-11-01 08:05] VITALS: BP 135/66
[2021-11-01] MEDS: TRAVOPROST-Z 0.004% 2.5 ML OPHTHALMIC SOLUTION OU SCH (08:38)
[2021-11-01] MEDS: OLOPATADINE HCL 0.1% 5 ML OPHTHALMIC SOLUTION OU SCH (08:38)
[2021-11-01] MEDS: CycloSPORINE 0.05% 0.4 ML OPHTHALMIC EMULSION OU SCH (08:38)
[2021-11-01] MEDS: BRINZOLAMIDE 1% 10 ML OPHTHALMIC SUSPENSION OU SCH (08:38)
[2021-11-01] MEDS: OMEPRAZOLE 20 MG CAPSULE PO SCH (08:40)
[2021-11-01] MEDS: MULTIVITAMINS WITH MINERALS, THERAPEUTIC TABLET PO SCH (08:40)
[2021-11-01] MEDS: SODIUM CHLORIDE 1 GM TABLET PO SCH (08:40)
[2021-11-01] MEDS: ValACYclovir HCL 500 MG TABLET PO SCH (08:40)
[2021-11-01] MEDS: ISOSORBIDE MONONITRATE 30 MG ER TABLET PO SCH (08:40)
[2021-11-01] MEDS: PredniSONE 20 MG TABLET PO SCH (08:41)
[2021-11-01] MEDS: AmLODIPine BESYLATE 10 MG TABLET PO SCH (08:41)
[2021-11-01] MEDS: ETHYL ALCOHOL 62% ANTISEPTIC NASAL INHALANT 0.6 ML AMPUL NASAL SCH (08:42)
[2021-11-01] MEDS: DOCUSATE SODIUM 250 MG CAPSULE PO SCH (08:43)
== END 2021-11-01 14:22 | disposition home or self-care (01) | DRG 83 ==
LOC: 2WR 15:20
PROVIDERS: ADMIT Physical Medicine & Rehabilitation; ATTEND Physical Medicine & Rehabilitation
DX: S06.6X9A Traumatic subarachnoid hemorrhage with loss of consciousness of unspecified duration, initial encounter (principal); E87.1 Hypo-osmolality and hyponatremia; E46 Unspecified protein-calorie malnutrition; G81.90 Hemiplegia, unspecified affecting unspecified side; S02.91XA Unspecified fracture of skull, initial encounter for closed fracture; F10.10 Alcohol abuse, uncomplicated; D64.9 Anemia, unspecified; E78.5 Hyperlipidemia, unspecified; E87.6 Hypokalemia; G51.0 Bell's palsy; I10 Essential (primary) hypertension; M21.371 Foot drop, right foot; N40.0 Benign prostatic hyperplasia without lower urinary tract symptoms; Z20.822 Contact with and (suspected) exposure to COVID-19; Z68.31 Body mass index [BMI] 31.0-31.9, adult; Z91.014 Allergy to mammalian meats
CPT/HCPCS: 70496; 70498; 80048; 80053; 82962; 85025; 87081; 92507; 92523; 93970; 97110; 97112; 97116; 97162; 97163; 97167; 97530; 97535; 99366; J1644; J7030

== ENCOUNTER 2021-10-26 09:27 | Emergency (ER) | payer MEDICARE, OTHER ==
[~2021-10-26] VITALS: Ht 172.7 cm; Wt 97.9 kg
[2021-10-26] MEDS ORDERED: SODIUM CHLORIDE 0.9% 100 ML ONE (09:32)
[2021-10-26] MEDS ORDERED: IOHEXOL 350 MG/ML 100 ML VIAL ONE (09:32)
[2021-10-26 10:30] LABS: COVID AG,FIA SOURCE NASOPHARYNGEAL
[2021-10-26 10:33] LABS: ALANINE AMINOTRANSFERASE 40 U/L (12-78); ALBUMIN 3.6 g/dL (3.4-5.0); ALKALINE PHOSPHATASE 111 U/L (46-116); ANION GAP 9 mmol/L (8-16); ASPARTATE AMINOTRANSFERASE 25 U/L (15-37); BILIRUBIN,TOTAL 0.6 mg/dL (0.1-1.0); CALCIUM, TOTAL 9.7 mg/dL (8.8-10.5); CARBON DIOXIDE 25 mmol/L (22-29); CHLORIDE 95 mmol/L (98-107); CREATININE 1.06 mg/dL (0.60-1.30); GLUCOSE,RANDOM 117 mg/dL (70-110); POTASSIUM 4.3 mmol/L (3.5-5.1); SODIUM SERUM 129 mmol/L (136-145); TOTAL PROTEIN, SERUM 8.4 g/dL (6.4-8.2); UREA NITROGEN, BLOOD 30 mg/dL (7-18)
[2021-10-26 10:35] LABS: GLOMERULAR FILTR. RATE CALC > 60 mL/min (>60)
[2021-10-26 10:39] LABS: HEMATOCRIT 36.2 % (41-53); HEMOGLOBIN 12.3 g/dL (13.5-17.5); MEAN CORPUSCULAR VOLUME 91 fL (80-100); PLATELET COUNT (AUTO) 304 K/uL (150-450); RED BLOOD CELL COUNT(AUTO) 3.96 MIL/uL (4.50-5.90); RED CELL DISTRIBUTION WIDTH 14.2 % (11.5-14.5)
[2021-10-26 10:40] LABS: BASOPHILS % (AUTO) 0.6 % (0.0-2.0); EOSINOPHILS % (AUTO) 1.1 % (1.0-6.0); LYMPHOCYTES # (AUTO) 1.9 K/uL (1.0-4.8); LYMPHOCYTES % (AUTO) 20.1 % (22.0-44.0); MONOCYTES # (AUTO) 0.9 K/uL (0.1-1.0); MONOCYTES % (AUTO) 9.5 % (2.0-9.0); NEUTROPHILS # (AUTO) 6.4 K/uL (1.8-7.7); NEUTROPHILS % (AUTO) 68.7 % (40.0-70.0)
[2021-10-26 10:41] LABS: PROTHROMBIN TIME 10.9 SEC (9.4-11.6)
[2021-10-26 13:56] VITALS: BP 105/69
[2021-10-26] MEDS ORDERED: ACYCLOVIR 200 MG CAPSULE PO ONE (14:30)
[2021-10-26] MEDS ORDERED: PredniSONE 20 MG TABLET PO ONE (14:30)
[2021-10-27] MEDS ORDERED: LORA-1000 PO (10:54)
[2021-10-27] MEDS ORDERED: CYCL05OE OU (10:54)
[2021-10-27] MEDS ORDERED: VALS160T2 PO (10:54)
[2021-10-27] MEDS ORDERED: NACL1 PO (10:54)
[2021-10-27] MEDS ORDERED: MULT-1239 PO (10:54)
[2021-10-27] MEDS ORDERED: MIRT-89 PO (10:54)
[2021-10-27] MEDS ORDERED: TRAV2.5D7 OU (10:54)
[2021-10-27] MEDS ORDERED: OMEP20 PO (10:54)
[2021-10-27] MEDS ORDERED: SIMV-43 PO (10:54)
[2021-10-27] MEDS ORDERED: BRINOS OU (10:54)
[2021-10-27] MEDS ORDERED: ISOS30TA92 PO (10:54)
[2021-10-27] MEDS ORDERED: SENN-187 PO (10:54)
[2021-10-27] MEDS ORDERED: TAMS-13 PO (10:54)
[2021-10-27] MEDS ORDERED: AMLO-258 PO (10:54)
[2021-10-27] MEDS ORDERED: DOCU-350 PO (10:54)
[2021-10-27] MEDS ORDERED: ACET325T51 PO (10:54)
== END 2021-10-26 16:36 ==
LOC: EMS 09:32
DX: G51.0 Bell's palsy (principal); I10 Essential (primary) hypertension; Z79.82 Long term (current) use of aspirin; Z79.899 Other long term (current) drug therapy; Z91.014 Allergy to mammalian meats; Z20.822 Contact with and (suspected) exposure to COVID-19
CPT/HCPCS: 36415; 70551; 71045; 80053; 82962; 83880; 84484; 85025; 85610; 85730; 86850; 86900; 86901; 87426; 93005; 99285; J7050; J7512; Q9967